=== PATIENT | male | born 1970 | race Caucasian/White ===

== ENCOUNTER 2021-04-23 16:44 | Emergency (ER) | payer MEDICAID ==
[~2021-04-23] VITALS: Ht 177.8 cm; Wt 104.3 kg
[2021-04-23] MEDS ORDERED: HYDROmorphone HCL 2 MG/ML VL IM ONE ×2 (21:30)
[2021-04-23 22:00] VITALS: BP 112/60
== END 2021-04-23 22:03 | disposition home or self-care (01) ==
LOC: ER 16:44
DX: S89.91XA Unspecified injury of right lower leg, initial encounter (principal); M79.10 Myalgia, unspecified site; M54.2 Cervicalgia; X58.XXXA Exposure to other specified factors, initial encounter; Y93.89 Activity, other specified; Y92.89 Other specified places as the place of occurrence of the external cause; Y99.8 Other external cause status
CPT/HCPCS: 72125; 96372; 99284; J1170